=== PATIENT | male | born 1965 | race Caucasian/White ===

== ENCOUNTER 2016-11-30 21:56 | Emergency (ER) | payer SELFPAY ==
[~2016-11-30] VITALS: Ht 167.6 cm; Wt 69.0 kg
[2016-11-30 21:58] VITALS: BP 162/100
[2016-11-30] MEDS ORDERED: FLUORESCEIN OPHTHALMIC 1 MG STRIP EACHEYE ONE (22:30)
[2016-11-30] MEDS ORDERED: PROPARACAINE OPHTH 0.5%, 15ML EACHEYE ONE (22:30)
[2016-11-30] MEDS ORDERED: PROPARACAINE OPHTH 0.5%, 15ML ONE (22:35)
[2016-11-30] MEDS ORDERED: FLUORESCEIN OPHTHALMIC 1 MG STRIP ONE (22:35)
== END 2016-11-30 22:56 | disposition home or self-care (01) ==
LOC: ED 22:50
DX: S05.02XA Injury of conjunctiva and corneal abrasion without foreign body, left eye, initial encounter (principal); X58.XXXA Exposure to other specified factors, initial encounter; Y93.89 Activity, other specified; Y92.89 Other specified places as the place of occurrence of the external cause; Y99.8 Other external cause status
CPT/HCPCS: 99283